=== PATIENT | female | born 2000 | race Caucasian/White ===

== ENCOUNTER 2021-11-18 15:48 | Outpatient (CLI) | payer BC | END 2021-11-18 15:49 | disposition home or self-care (01) | LOC: SCSRAD 15:48 | PROVIDERS: ATTEND Family Medicine | DX: M25.542 Pain in joints of left hand (principal); F31.75 Bipolar disorder, in partial remission, most recent episode depressed; S62.307A Unspecified fracture of fifth metacarpal bone, left hand, initial encounter for closed fracture ==